=== PATIENT | male | born 2000 | race Hispanic/Latino ===

== ENCOUNTER 2019-08-18 | Emergency (ER) | payer BC ==
[2019-08-18] MEDS ORDERED: CORTISPORIN OTI10 M2 AS (19:33)
== END 2019-08-18 19:54 | disposition home or self-care (01) | DRG 156 ==
DX: H60.92 Unspecified otitis externa, left ear (principal)

== ENCOUNTER 2019-09-09 20:29 | Emergency (ER) | payer BC ==
[~2019-09-09 20:29] MED LIST: CORTISPORIN OTI10 M2 AS
[2019-09-09 20:34] VITALS: BP 196/100
[2019-09-09] MEDS ORDERED: TRAMADOL HCL50 MG PO (20:48)
[2019-09-09] MEDS ORDERED: ACETIC ACID2 % OT (20:48)
[2019-09-09] MEDS ORDERED: CYCLOBENZAPR5 MG PO (20:49)
[2019-09-09] MEDS ORDERED: AMOXICILLIN500 M2 PO (20:59)
[2019-09-09] MEDS ORDERED: PREDNISONE20 MG PO (20:59)
[2019-09-09] MEDS ORDERED: VALTREX1 GM PO (21:00)
== END 2019-09-09 21:10 | disposition home or self-care (01) | DRG 153 ==
LOC: ED 20:29
DX: H66.92 Otitis media, unspecified, left ear (principal); G51.0 Bell's palsy

== ENCOUNTER 2022-07-10 12:45 | Emergency (ER) | payer SELFPAY ==
[~2022-07-10] VITALS: Ht 172.7 cm; Wt 105.0 kg
[~2022-07-10 12:45] MED LIST changes: +ACETIC ACID2 % OT; +AMOXICILLIN500 M2 PO; +CYCLOBENZAPR5 MG PO; +PREDNISONE20 MG PO; +TRAMADOL HCL50 MG PO; +VALTREX1 GM PO
[2022-07-10 13:22] VITALS: BP 136/81
[2022-07-10 13:31] VITALS: BP 121/88
[2022-07-10 13:48] VITALS: BP 123/80
[2022-07-10] MEDS ORDERED: METHOCARBAMOL500 MG PO (14:54)
[2022-07-10] MEDS ORDERED: NAPROXEN500 MG PO (14:54)
[2022-07-10] MEDS ORDERED: PREDNISONE10 MG PO (14:54)
[2022-07-10 15:21] VITALS: BP 123/80
== END 2022-07-10 15:29 | disposition home or self-care (01) | DRG 552 ==
LOC: ED 12:45
DX: M54.16 Radiculopathy, lumbar region (principal); M25.552 Pain in left hip